=== PATIENT | female | born 1960 | race Caucasian/White ===

== ENCOUNTER 2016-03-12 13:58 | Emergency (ER) ==
[2016-03-12 14:06] VITALS: BP 139/84
--- NOTE | 2016-03-12 14:35 | PROVIDER DOCUMENTATION ---
HPI-EENT General - General Chief Complaint: Sinus Pain Stated Complaint: SINUS INFECTION Time Seen by Provider: 03/12/16 14:26 Source: patient Allergies/Adverse Reactions: Patient Allergies Allergy/AdvReac Type Severity Reaction Status Date / Time Penicillins Allergy Intermediate RASH Verified 03/12/16 14:19 Sulfa (Sulfonamide Allergy Intermediate fever Verified 03/12/16 14:19 Antibiotics) Home Medications: Acetaminophen [Tylenol Extra Strength] 500 mg PO PRN PRN 04/10/15 Bismuth Subsalicylate [Pepto Bismol] 15 ml PO PRN PRN 04/10/15 Diphenhydramine [Benadryl] 50 mg PO HS PRN PRN 04/10/15 Guaifenesin/D-Methorphan Hb/PE [Tussin Cf Cough & Cold Liq] 10 ml PO QHS Phenylephrine HCl [Sudafed PE] 10 mg PO Q4HR 04/10/15 Sodium Chloride/Sodium Bicarb [Nasa Mist Saline [place]] 75 ml NS QAM 04/10/15 - History of Present Illness-EENT General Nature of Presenting Problem: This pt, who has a long hx of sinus infections and 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 She was going to [facility] but her insurance "ran out" and she is having to wait to go back. She states that usually she takes Doxycycline and feels better. No other issues or complaints. EENT Location: reports: nose, facial Quality of Pain: reports: aching Severity: reports: moderate Onset/Duration: reports: other (see hpi) Prearrival Treatment: Initiated over the counter meds Associated Symptoms: reports: nasal congestion/drainage, sinus infection Similar Symptoms Previously?: Yes Recently seen or treated by another doctor?: Yes Review of Systems - Adult - REVIEW OF SYSTEMS - ADULT Constitutional: reports: no symptoms reported. denies: chills, fever Eyes: reports: no symptoms reported. denies: discharge, dry eyes Ears, Nose, Mouth & Throat: reports: see HPI, sinus problem, nose pain. denies : hoarseness, throat pain Cardiovascular: reports: no symptoms reported. denies: chest pain, edema Respiratory: reports: no symptoms reported. denies: chronic cough, cough Gastrointestinal: reports: no symptoms reported. denies: abdominal pain, hematemesis Genitourinary: reports: no symptoms reported. denies: dysuria, discharge Musculoskeletal: reports: no symptoms reported. denies: bone pain, back pain Integumentary: reports: no symptoms reported. denies: hives, hair loss Neurological: reports: no symptoms reported. denies: ataxia, dizziness/vertigo Psychiatric: reports: no symptoms reported. denies: anxiety, anti-depressant use Endocrine: reports: no symptoms reported Hematologic/Lymphatic: reports: no symptoms reported Allergic/Immunologic: reports: no symptoms reported All Other Systems: Reviewed and Negative Past History - Adult - PAST MEDICAL HISTORY-ADULT Review of Records: reports: Old Records Reviewed, Nursing Assessment Review, Medications Reviewed, Social history reviewed & non-contributory. Major Childhood Illnesses: reports: denies history Cardiovascular: reports: denies history Respiratory: reports: denies history Gastrointestinal: reports: denies history Obstetrical/Gynecological: reports: denies history Genitourinary: reports: denies history Musculoskeletal: reports: denies history Neurological: reports: denies history Endocrine/Immune: reports: denies history Other Conditions: reports: other (chronic sinusitis) Additional History: HPV Physical Exam- EENT - Physical Exam EENT Initial Vital Signs Reviewed: Yes General Appearance: appears well, alert, no apparent distress Eye Exam: bilateral eye: normal inspection, PERRL, EOMI Ear Exam: bilateral ear: auricle normal, canal normal, TM normal Eyes,Nose,Lips,Neck: 1 - bilateral nasal polyps Nasal Exam: sinus tenderness Throat Exam: normal mouth inspection, pharynx normal Neck: non-tender, full range of motion, supple, normal inspection Respiratory: chest non-tender, lungs clear, normal breath sounds, no pleuratic chest pain, no respiratory distress, no accessory muscle use Cardiovascular: normal peripheral pulses, regular rate, rhythm, no edema, no gallop, no JVD, no murmur Abdominal Exam: normal bowel sounds, non tender, soft, no organomegaly, no pulsatile mass Lymphatic: no adenopathy Back Exam: normal inspection, no CVA tenderness, no vertebral tenderness Extremity: normal range of motion, non-tender, normal gait, normal inspection, no pedal edema, no calf tenderness, normal capillary refill, pelvis stable Integumentary: normal color, normal turgor, warm/dry Neurologic: immunology specialist II-XII nml as tested, no motor/sensory deficits Psych/Mental Status: AL, normal mood/affect, normal thought content, normal thought process, oriented x 3 Progress - PLAN OF CARE/RESULTS Progress/Plan/Lab Results: Vital Signs Temp Pulse Resp BP Pulse Ox 03/12/16 14:04 97.6 F 99 H 20 139/84 100 Penicillins Allergy (Intermediate, Verified 03/12/16 14:19) RASH Sulfa (Sulfonamide Antibiotics) Allergy (Intermediate, Verified 03/12/16 14:19) fever Amoxicillin [Amoxil] 500 mg PO BID #10 capsule 04/04/15 Acetaminophen [Tylenol Extra Strength] 500 mg PO PRN PRN 04/10/15 Bismuth Subsalicylate [Pepto Bismol] 15 ml PO PRN PRN 04/10/15 Diphenhydramine [Benadryl] 50 mg PO HS PRN PRN 04/10/15 Guaifenesin/D-Methorphan Hb/PE [Tussin Cf Cough & Cold Liq] 10 ml PO QHS Ondansetron [Zofran] 4 mg PO Q6H PRN PRN #15 tablet 04/10/15 Phenylephrine HCl [Sudafed PE] 10 mg PO Q4HR 04/10/15 Sodium Chloride/Sodium Bicarb [Nasa Mist Saline [place]] 75 ml NS QAM 04/10/15 Departure - Departure Time of Disposition Order: 14:34 DIAGNOSIS: Nasal polyps Chronic sinusitis Qualifiers: Sinusitis location: pansinusitis Qualified Code(s): J32.4 - Chronic pansinusitis Disposition: HOME 01 Certified Medical Emergency: Urgent Condition: Good Additional Instructions: Take medication as prescribed. Follow up with your ENT in [place]. ED Follow Up Instructions: You have been treated by a care provider in the Emergency Department. These instructions are being provided to you so you can have an understanding of how to care for yourself upon discharge. Upon discharge from the Emergency Department, you are responsible for making arrangements for follow-up care by a physician of your choice. Take all prescribed medications as directed. Return to the Emergency Department immediately for any new or worsening symptoms. You may call the Physician Referral phone number at [phone] to obtain a list of Physicians who are taking new patients. Prescriptions: Guaifenesin/D-Methorphan Hb/PE [Deconex Dmx Tablet] 1 each PO TID #30 tablet Doxycycline 100 mg PO BID #14 tablet Attestation - Physician/ Mid-level Attestation Patient care was provided by Mid-level provider (FREELANCE WRITER/PA):: Yes Mid-level provider:: César Malone Mid-level documentation review:: The Mid-level provider documentation, treatment plan and medical decision making was reviewed by the physician who agrees with all treatment and medical decision making by the MLP.
== END 2016-03-12 15:05 | disposition home or self-care (01) ==
LOC: ED 13:58
DX: J33.9 Nasal polyp, unspecified (principal); J32.4 Chronic pansinusitis; R51 Headache; R09.81 Nasal congestion; J34.89 Other specified disorders of nose and nasal sinuses; A63.0 Anogenital (venereal) warts; Z79.899 Other long term (current) drug therapy
CPT/HCPCS: 99282